=== PATIENT | female | born 1940 | race Caucasian/White ===

== ENCOUNTER → 2017-04-16 | Outpatient (CLI) | payer MEDICARE ==
[2017-04-16 12:52] LABS: HEMATOCRIT 34.5 % (36.0-47.0); HEMOGLOBIN 11.6 g/dL (12.0-15.5); HGB HCT DIFFERENCE 0.3; MEAN CORPUSCULAR HEMOGLOBIN 27.8 pg (27.0-33.4); MEAN CORPUSCULAR HGB CONC 33.6 g/dL (32.0-36.0); MEAN CORPUSCULAR VOLUME 83 fl (80-97); RED BLOOD COUNT 4.17 10^6/uL (3.72-5.28); RED CELL DISTRIBUTION WIDTH 14.7 % (11.5-14.0); WHITE BLOOD COUNT 7.5 10^3/uL (4.0-10.5)
[2017-04-16 13:06] LABS: APPEARANCE,URINE CLEAR; BILIRUBIN,URINE NEGATIVE (NEGATIVE); GLUCOSE, URINE NEGATIVE (NEGATIVE); KETONES,URINE NEGATIVE (NEGATIVE); LEUKOCYTE ESTERASE,URINE TRACE (NEGATIVE); NITRITE,URINE NEGATIVE (NEGATIVE); PROTEIN,URINE NEGATIVE (NEGATIVE); URINE SPECIFIC GRAVITY 1.018; UROBILINOGEN,URINE NEGATIVE mg/dL (<2.0)
[2017-04-16 13:07] LABS: ANION GAP 15 (5-19); BLOOD UREA NITROGEN 26 mg/dL (7-20); CALCIUM 9.5 mg/dL (8.4-10.2); CARBON DIOXIDE 17 mmol/L (22-30); CHLORIDE 111 mmol/L (98-107); GLUCOSE 106 mg/dL (75-110); POTASSIUM 4.9 mmol/L (3.6-5.0); SODIUM 142.5 mmol/L (137-145)
== END ==
LOC: OD 11:45
PROVIDERS: ATTEND Physician Assistant Medical
DX: I12.9 Hypertensive chronic kidney disease with stage 1 through stage 4 chronic kidney disease, or unspecified chronic kidney disease (principal); N18.3 Chronic kidney disease, stage 3 (moderate); E11.9 Type 2 diabetes mellitus without complications
CPT/HCPCS: 36415; 80048; 81001; 85027

== ENCOUNTER → 2017-05-22 | Outpatient (CLI) | payer MEDICARE ==
[2017-05-22 11:42] LABS: APPEARANCE,URINE SLIGHTLY-CLOUDY; BILIRUBIN,URINE NEGATIVE (NEGATIVE); GLUCOSE, URINE NEGATIVE (NEGATIVE); KETONES,URINE NEGATIVE (NEGATIVE); LEUKOCYTE ESTERASE,URINE TRACE (NEGATIVE); NITRITE,URINE NEGATIVE (NEGATIVE); PROTEIN,URINE NEGATIVE (NEGATIVE); URINE SPECIFIC GRAVITY 1.011; UROBILINOGEN,URINE NEGATIVE mg/dL (<2.0)
[2017-05-22 11:44] LABS: HEMATOCRIT 38.9 % (36.0-47.0); HEMOGLOBIN 12.5 g/dL (12.0-15.5); HGB HCT DIFFERENCE -1.4; MEAN CORPUSCULAR HEMOGLOBIN 27.3 pg (27.0-33.4); MEAN CORPUSCULAR HGB CONC 32.1 g/dL (32.0-36.0); MEAN CORPUSCULAR VOLUME 85 fl (80-97); RED BLOOD COUNT 4.57 10^6/uL (3.72-5.28); RED CELL DISTRIBUTION WIDTH 14.4 % (11.5-14.0); WHITE BLOOD COUNT 8.4 10^3/uL (4.0-10.5)
[2017-05-22 12:18] LABS: ANION GAP 12 (5-19); BLOOD UREA NITROGEN 20 mg/dL (7-20); CARBON DIOXIDE 24 mmol/L (22-30); CHLORIDE 107 mmol/L (98-107); CREATININE RESULT 1.27 mg/dL (0.52-1.25); GLUCOSE 120 mg/dL (75-110); POTASSIUM 4.6 mmol/L (3.6-5.0); SODIUM 143.3 mmol/L (137-145)
[2017-05-23 11:40] LABS: CREATININE URINE 106.7 mg/dL (Not Estab.); MICROALBUMIN URINE 60.9 ug/mL (Not Estab.)
== END ==
LOC: OD 11:08
PROVIDERS: ATTEND Physician Assistant Medical
DX: N18.3 Chronic kidney disease, stage 3 (moderate) (principal); I12.9 Hypertensive chronic kidney disease with stage 1 through stage 4 chronic kidney disease, or unspecified chronic kidney disease; E11.9 Type 2 diabetes mellitus without complications
CPT/HCPCS: 36415; 80048; 81001; 82043; 82570; 85027

== ENCOUNTER → 2017-10-24 | Outpatient (CLI) | payer MEDICAID ==
[2017-10-24 13:48] LABS: APPEARANCE,URINE SLIGHTLY-CLOUDY; BILIRUBIN,URINE NEGATIVE (NEGATIVE); COLOR,URINE YELLOW; GLUCOSE, URINE NEGATIVE (NEGATIVE); KETONES,URINE NEGATIVE (NEGATIVE); LEUKOCYTE ESTERASE,URINE TRACE (NEGATIVE); NITRITE,URINE NEGATIVE (NEGATIVE); PROTEIN,URINE 30 mg/dL (NEGATIVE); URINE SPECIFIC GRAVITY 1.023; UROBILINOGEN,URINE NEGATIVE mg/dL (<2.0)
[2017-10-24 13:54] LABS: ABSOLUTE BASOPHILS # (AUTO) 0.1 10^3/uL (0.0-0.2); ABSOLUTE EOSINOPHILS # (AUTO) 0.2 10^3/uL (0.0-0.6); ABSOLUTE LYMPHOCYTES (AUTO) 2.6 10^3/uL (0.5-4.7); ABSOLUTE MONOCYTES (AUTO) 0.7 10^3/uL (0.1-1.4); ABSOLUTE NEUT (AUTO) 5.3 10^3/uL (1.7-8.2); BASOPHILS % (AUTO) 0.9 % (0-2); HEMATOCRIT 37.3 % (36.0-47.0); HEMOGLOBIN 12.5 g/dL (12.0-15.5); LYMPHOCYTES % (AUTO) 29.3 % (13-45); MEAN CORPUSCULAR HGB CONC 33.4 g/dL (32.0-36.0); MEAN CORPUSCULAR VOLUME 81 fl (80-97); PLATELET COUNT 289 10^3/uL (150-450); RED BLOOD COUNT 4.62 10^6/uL (3.72-5.28); RED CELL DISTRIBUTION WIDTH 14.4 % (11.5-14.0); SEGMENTED NEUTROPHILS % (AUTO) 59.8 % (42-78); TOTAL CELLS COUNTED % (AUTO) 100 %; WHITE BLOOD COUNT 8.9 10^3/uL (4.0-10.5)
[2017-10-24 14:29] LABS: ALANINE AMINOTRANSFERASE 19 U/L (9-52); ALBUMIN 4.2 g/dL (3.5-5.0); ALKALINE PHOSPHATASE 109 U/L (38-126); ANION GAP 9 (5-19); ASPARTATE AMINO TRANSFERASE 20 U/L (14-36); BILIRUBIN,DIRECT 0.5 mg/dL (0.0-0.4); BILIRUBIN,TOTAL 0.5 mg/dL (0.2-1.3); BLOOD UREA NITROGEN 19 mg/dL (7-20); CALCIUM 10.2 mg/dL (8.4-10.2); CARBON DIOXIDE 25 mmol/L (22-30); CHLORIDE 109 mmol/L (98-107); GLUCOSE 70 mg/dL (75-110); POTASSIUM 4.5 mmol/L (3.6-5.0); SODIUM 143.1 mmol/L (137-145)
[2017-10-25 07:33] LABS: VITAMIN D 25-HYDROXY 25.9 ng/mL (30.0-100.0)
[2017-10-26 14:49] LABS: INSULIN 11.8 uIU/mL (2.6-24.9)
== END ==
LOC: OD 12:22
PROVIDERS: ATTEND Nurse Practitioner Family
DX: I10 Essential (primary) hypertension (principal); E78.5 Hyperlipidemia, unspecified; E11.9 Type 2 diabetes mellitus without complications; E55.9 Vitamin D deficiency, unspecified
CPT/HCPCS: 36415; 80053; 81005; 82306; 83036; 83525; 85025

== ENCOUNTER 2018-06-12 19:52 | Inpatient (IN) | payer MEDICARE, MEDICAID ==
[2018-06-12] MEDS ORDERED: NORMAL SALINE 1000 ML 1,000 ML IV ONE (20:03)
[2018-06-12 20:44] LABS: ABSOLUTE BASOPHILS # (AUTO) 0.1 10^3/uL (0.0-0.2); ABSOLUTE LYMPHOCYTES (AUTO) 1.4 10^3/uL (0.5-4.7); ABSOLUTE MONOCYTES (AUTO) 1.3 10^3/uL (0.1-1.4); ABSOLUTE NEUT (AUTO) 11.8 10^3/uL (1.7-8.2); BASOPHILS % (AUTO) 0.4 % (0-2); EOSINOPHILS % (AUTO) 0.1 % (0-6); HEMATOCRIT 35.8 % (36.0-47.0); LYMPHOCYTES % (AUTO) 9.3 % (13-45); MEAN CORPUSCULAR HGB CONC 33.4 g/dL (32.0-36.0); MEAN CORPUSCULAR VOLUME 84 fl (80-97); MONOCYTES % (AUTO) 9.2 % (3-13); PLATELET COUNT 296 10^3/uL (150-450); RED BLOOD COUNT 4.27 10^6/uL (3.72-5.28); RED CELL DISTRIBUTION WIDTH 14.3 % (11.5-14.0); TOTAL CELLS COUNTED % (AUTO) 100 %; WHITE BLOOD COUNT 14.6 10^3/uL (4.0-10.5)
[2018-06-12 20:45] LABS: VENOUS BLOOD BASE EXCESS -3.6 mmol/L; VENOUS BLOOD HCO3 19.1 mmol/L (20-32); VENOUS BLOOD PCO2 28.3 mmHg (35-63); VENOUS BLOOD PH 7.45 (7.30-7.42)
[2018-06-12] MEDS ORDERED: LEVOFLOXACIN 750 MG/D5W RTU 750 MG/150 ML RTUPB IV ONE (20:45)
--- NOTE | 2018-06-12 20:48 | RADIOLOGY REPORT (SQ) ---
EXAM DESCRIPTION: CHEST SINGLE VIEW COMPLETED DATE/TIME: 06/12/2018 8:38 pm REASON FOR STUDY: fever COMPARISON: None. EXAM PARAMETERS: NUMBER OF VIEWS: One view. TECHNIQUE: Single frontal radiographic view of the chest acquired. RADIATION DOSE: NA LIMITATIONS: None. FINDINGS: LUNGS AND PLEURA: There is a small area of opacification in the left lower lung field. Th e left heart border remains well-defined. MEDIASTINUM AND HILAR STRUCTURES: No masses. Contour normal. HEART AND VASCULAR STRUCTURES: Heart normal in size. Normal vasculature. BONES: No acute findings. HARDWARE: None in the chest. OTHER: No other significant finding. IMPRESSION: Cannot exclude limited left lower lobe pneumonia. Cannot entirely exclude a 3 cm pulmon nery mass. TECHNICAL DOCUMENTATION: JOB ID: [id number] [employer]- All Rights Reserved Reading location - IP/workstation name: [email or web address]
[2018-06-12 21:04] LABS: INTERNATIONAL RATION (INR) 1.11; PROTHROMBIN TIME 14.9 SEC (11.4-15.4)
[2018-06-12 21:06] LABS: APPEARANCE,URINE CLOUDY; BILIRUBIN,URINE NEGATIVE (NEGATIVE); COLOR,URINE YELLOW; GLUCOSE, URINE NEGATIVE (NEGATIVE); KETONES,URINE TRACE mg/dL (NEGATIVE); LEUKOCYTE ESTERASE,URINE SMALL (NEGATIVE); NITRITE,URINE NEGATIVE (NEGATIVE); PROTEIN,URINE 100 mg/dL (NEGATIVE); URINE SPECIFIC GRAVITY 1.024
[2018-06-12 21:11] LABS: ALANINE AMINOTRANSFERASE 25 U/L (9-52); ALBUMIN 4.1 g/dL (3.5-5.0); ALKALINE PHOSPHATASE 100 U/L (38-126); ANION GAP 14 (5-19); ASPARTATE AMINO TRANSFERASE 26 U/L (14-36); BILIRUBIN,DIRECT 0.4 mg/dL (0.0-0.4); BILIRUBIN,TOTAL 0.6 mg/dL (0.2-1.3); BLOOD UREA NITROGEN 22 mg/dL (7-20); CALCIUM 9.7 mg/dL (8.4-10.2); CARBON DIOXIDE 19 mmol/L (22-30); CHLORIDE 106 mmol/L (98-107); GLUCOSE 92 mg/dL (75-110); POTASSIUM 4.2 mmol/L (3.6-5.0); SODIUM 139.4 mmol/L (137-145)
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
[2018-06-12] MEDS ORDERED: GUAIFENESIN SYRP 200 MG/10 ML UDC PO PRN (22:05)
[2018-06-12] MEDS ORDERED: IPRATROPIUM/ALBUTEROL 0.5-2.5 MG/3 ML AMPUL NEB PRN (22:05)
[2018-06-12] MEDS ORDERED: NORMAL SALINE 1000 ML 1,000 ML IV SCH (22:15)
[2018-06-12] MEDS ORDERED: DIPHENHYDRAMINE HCL 50 MG CAPSULE PO ONE (23:15)
[2018-06-13] MEDS: IPRATROPIUM/ALBUTEROL 0.5-2.5 MG/3 ML AMPUL NEB SCH ×4 (00:10→23:39)
[2018-06-13] MEDS: ACETAMINOPHEN 325 MG TABLET PO PRN ×4 (02:42→23:25)
--- NOTE | 2018-06-13 04:59 | PDOC H&P ---
History of Present Illness Admission Date/PCP: 06/12/18 22:30 Patient complains of: Altered mental status and shortness of breath History of Present Illness: ERLIN MCKEON is a 77 year old female with a past medical history of hypertension and diabetes. Presents with 24 hours of fever, altered mental status, shortness of breath and a nonproductive cough. She admits to rhinorrhea , denies recent antibiotics. In the emergency room she is found to have leukocytosis and acute renal failure. She is referred to the hospitalist for admission. Past Medical History Cardiac Medical History: Reports: Hypertension Endocrine Medical History: Reports: Diabetes Mellitus Type 2 Psychiatric Medical History: Denies: Depression, Tobacco Dependency Traumatic Medical History: Reports: None Hematology: Reports: None Infectious Medical History: Reports: None Social History Information Source: Patient Lives with: Family Smoking Status: Never Smoker Frequency of Alcohol Use: None Hx Recreational Drug Use: No Drugs: None - Advance Directive Resuscitation Status: Full Code Family History Family History: Hypertension Parental Family History Reviewed: Yes Children Family History Reviewed: Yes Sibling(s) Family History Reviewed.: Yes Medication/Allergy Allergies/Adverse Reactions: No Known Allergies Allergy (Verified 06/12/18 23:28) Review of Systems Constitutional: ABSENT: chills, fever(s), headache(s), weight gain, weight loss Eyes: ABSENT: visual disturbances Ears: ABSENT: hearing changes Cardiovascular: ABSENT: chest pain, dyspnea on exertion, edema, orthropnea, palpitations Respiratory: ABSENT: cough, hemoptysis Gastrointestinal: ABSENT: abdominal pain, constipation, diarrhea, hematemesis, hematochezia, nausea, vomiting Genitourinary: ABSENT: dysuria, hematuria Musculoskeletal: ABSENT: joint swelling Integumentary: ABSENT: rash, wounds Neurological: ABSENT: abnormal gait, abnormal speech, confusion, dizziness, focal weakness, syncope Psychiatric: ABSENT: anxiety, depression, homidical ideation, suicidal ideation Endocrine: ABSENT: cold intolerance, heat intolerance, polydipsia, polyuria Hematologic/Lymphatic: ABSENT: easy bleeding, easy bruising Physical Exam Vital Signs: Temp Pulse Resp BP Pulse Ox 102.4 F H 129 H 16 115/58 L 98 06/13/18 03:27 06/13/18 03:27 06/13/18 03:27 06/13/18 03:27 06/13/18 04:04 Pulse Oximeter Continuous Start: 06/12/18 22: 05 Freq: RTQ4 Status: Active Document 06/13/18 04:04 CMI (Rec: 06/13/18 04:04 CMI [id number]) Pulse Oximetry Assessment Oxygen Saturation (92-100) 98 Oxygen Delivery Method Room Air Fraction of Inspired Oxygen (FIO2) 21 Equipment Usage Equipment in Use Continuous SpO2 Machine # 14 Intake & Output 06/11/18 06/12/18 06/13/18 11:59 11:59 11:59 Intake Total 1000 Balance 1000 Weight 60.7 kg General appearance: PRESENT: cooperative, mild distress. ABSENT: disheveled, obese Head exam: PRESENT: atraumatic, normocephalic Eye exam: PRESENT: conjunctiva pink, EOMI, PERRLA. ABSENT: scleral icterus Ear exam: PRESENT: normal external ear exam Mouth exam: PRESENT: moist, tongue midline Neck exam: ABSENT: carotid bruit, JVD, lymphadenopathy, thyromegaly Respiratory exam: PRESENT: accessory muscle use, decreased breath sounds, rhonchi, symmetrical, tachypnea Cardiovascular exam: PRESENT: RRR. ABSENT: diastolic murmur, rubs, systolic murmur Pulses: PRESENT: normal dorsalis pedis pul Vascular exam: PRESENT: normal capillary refill GI/Abdominal exam: PRESENT: normal bowel sounds, soft. ABSENT: distended, guarding, mass, organolmegaly, rebound, tenderness Rectal exam: PRESENT: deferred Extremities exam: PRESENT: full ROM. ABSENT: calf tenderness, clubbing, pedal edema Neurological exam: PRESENT: alert, altered, awake, oriented to person, oriented to situation, CN II-XII grossly intact Psychiatric exam: PRESENT: appropriate affect, normal mood. ABSENT: homicidal ideation, suicidal ideation Skin exam: PRESENT: dry, intact, warm. ABSENT: cyanosis, rash Results Impressions: Chest X-Ray 06/12/18 20:03 IMPRESSION: Cannot exclude limited left lower lobe pneumonia. Cannot entirely exclude a 3 cm pulmonary mass. Assessment & Plan - Diagnosis (1) Left lower lobe pneumonia Qualifiers: Pneumonia type: due to unspecified organism Qualified Code(s): J18.1 - Lobar pneumonia, unspecified organism Is this a current diagnosis for this admission?: Yes Plan: Pneumonia care set, follow-up CBC and blood culture (2) Encephalopathy acute Is this a current diagnosis for this admission?: Yes Plan: Secondary to #1, supportive care (3) Acute renal failure Is this a current diagnosis for this admission?: Yes Plan: Secondary to #1, IV fluid challenge, avoid nephrotoxic meds and doses follow-up chemistry (4) Sepsis Qualifiers: Sepsis type: sepsis due to unspecified organism Qualified Code(s): A41.9 - Sepsis, unspecified organism Is this a current diagnosis for this admission?: Yes Plan: Secondary to #1, IV fluid challenge, pressors as needed - Time Time Spent: 50 to 70 Minutes - Inpatient Certification Medical Necessity: Need Close Monitoring Due to Risk of Patient Decompensation
[2018-06-13 05:16] LABS: ABSOLUTE BASOPHILS # (AUTO) 0.1 10^3/uL (0.0-0.2); ABSOLUTE LYMPHOCYTES (AUTO) 1.1 10^3/uL (0.5-4.7); ABSOLUTE MONOCYTES (AUTO) 1.5 10^3/uL (0.1-1.4); ABSOLUTE NEUT (AUTO) 11.7 10^3/uL (1.7-8.2); BASOPHILS % (AUTO) 0.5 % (0-2); HEMATOCRIT 32.7 % (36.0-47.0); HEMOGLOBIN 10.8 g/dL (12.0-15.5); LYMPHOCYTES % (AUTO) 7.6 % (13-45); MEAN CORPUSCULAR HEMOGLOBIN 27.9 pg (27.0-33.4); MEAN CORPUSCULAR HGB CONC 33.1 g/dL (32.0-36.0); MEAN CORPUSCULAR VOLUME 84 fl (80-97); MONOCYTES % (AUTO) 10.8 % (3-13); PLATELET COUNT 256 10^3/uL (150-450); RED BLOOD COUNT 3.89 10^6/uL (3.72-5.28); RED CELL DISTRIBUTION WIDTH 14.5 % (11.5-14.0); SEGMENTED NEUTROPHILS % (AUTO) 81.1 % (42-78); TOTAL CELLS COUNTED % (AUTO) 100 %; WHITE BLOOD COUNT 14.4 10^3/uL (4.0-10.5)
[2018-06-13 05:36] LABS: ANION GAP 11 (5-19); BLOOD UREA NITROGEN 21 mg/dL (7-20); CALCIUM 8.9 mg/dL (8.4-10.2); CARBON DIOXIDE 18 mmol/L (22-30); CHLORIDE 111 mmol/L (98-107); GLUCOSE 84 mg/dL (75-110)
[2018-06-13] MEDS: HEPARIN SOD (PORCINE) 5,000 UNIT/ML 1 ML SYRINGE SUBCUT SCH ×3 (05:52→21:43)
[2018-06-13] MEDS: LEVOFLOXACIN 750 MG/D5W RTU 750 MG/150 ML RTUPB IV SCH (10:22)
[2018-06-13] MEDS ORDERED: DEXTROSE 40% GEL 15 GM TUBE PO PRN ×2 (14:36)
[2018-06-13] MEDS ORDERED: GLUCAGON,HUMAN RECOMB 1 MG INJ IM PRN (14:36)
[2018-06-13] MEDS ORDERED: INSULIN REG, HUMAN 100 UNIT/ML 3 ML VIAL (PYX) SUBCUT PRN (14:36)
[2018-06-13] MEDS ORDERED: DEXTROSE 50%-WATER 25 GM/50 ML DISP.SYRIN IV PRN ×2 (14:36)
--- NOTE | 2018-06-13 14:58 | PDOC PROGRESS REPORT ---
Subjective Progress Note for:: 06/13/18 Subjective:: ERLIN MCKEON is a 77 year old female with a past medical history of hypertension and diabetes. Presents with 24 hours of fever, altered mental status, shortness of breath and a nonproductive cough. She admits to rhinorrhea , denies recent antibiotics. Patient's encephalopathy resolved awake and alert this morning. Had fever of 101.3. Blood cultures were obtained again. White count remains 14,000. Patient having Reiger's earlier today Reason For Visit: ENCEPHALOPATHY ARF PNEUMONIA Physical Exam Vital Signs: Temp Pulse Resp BP Pulse Ox 99.3 F 98 16 134/61 H 96 06/13/18 11:54 06/13/18 14:00 06/13/18 11:54 06/13/18 11:54 06/13/18 12:00 General appearance: PRESENT: no acute distress, well-developed, well-nourished Eye exam: PRESENT: conjunctiva pink, EOMI, PERRLA. ABSENT: scleral icterus Neck exam: ABSENT: carotid bruit, JVD, lymphadenopathy, thyromegaly Respiratory exam: PRESENT: clear to auscultation carmela - Diminished breath sounds throughout. ABSENT: rales, rhonchi, wheezes Cardiovascular exam: PRESENT: RRR. ABSENT: diastolic murmur, rubs, systolic murmur GI/Abdominal exam: PRESENT: normal bowel sounds, soft. ABSENT: distended, guarding, mass, organolmegaly, rebound, tenderness Extremities exam: PRESENT: full ROM. ABSENT: calf tenderness, clubbing, pedal edema Neurological exam: PRESENT: alert, awake, oriented to person, oriented to place , oriented to time, oriented to situation, CN II-XII grossly intact. ABSENT: motor sensory deficit Results Impressions: Chest X-Ray 06/12/18 20:03 IMPRESSION: Cannot exclude limited left lower lobe pneumonia. Cannot entirely exclude a 3 cm pulmonary mass. Assessment & Plan - Diagnosis (1) Left lower lobe pneumonia Qualifiers: Pneumonia type: due to unspecified organism Qualified Code(s): J18.1 - Lobar pneumonia, unspecified organism Is this a current diagnosis for this admission?: Yes Plan: Continue Levaquin. CBC in a.m. 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
[2018-06-13] MEDS: DILTIAZEM HCL 30 MG TABLET PO SCH ×2 (17:01→23:22)
--- NOTE | 2018-06-13 21:02 | EKG REPORT ---
SEVERITY:- ABNORMAL ECG - SINUS TACHYCARDIA LEFT ATRIAL ABNORMALITY : Confirmed by: Carin Cunningham MD 13-Jun-2018 21:02:19
[2018-06-13] MEDS: ATORVASTATIN CALCIUM 20 MG TABLET PO SCH (21:44)
[2018-06-14 05:49] LABS: ABSOLUTE LYMPHOCYTES (AUTO) 1.5 10^3/uL (0.5-4.7); ABSOLUTE MONOCYTES (AUTO) 1.4 10^3/uL (0.1-1.4); ABSOLUTE NEUT (AUTO) 9.8 10^3/uL (1.7-8.2); BASOPHILS % (AUTO) 0.3 % (0-2); EOSINOPHILS % (AUTO) 0.1 % (0-6); HEMOGLOBIN 11.3 g/dL (12.0-15.5); LYMPHOCYTES % (AUTO) 12.1 % (13-45); MEAN CORPUSCULAR HEMOGLOBIN 27.8 pg (27.0-33.4); MEAN CORPUSCULAR HGB CONC 33.3 g/dL (32.0-36.0); MEAN CORPUSCULAR VOLUME 83 fl (80-97); MONOCYTES % (AUTO) 10.9 % (3-13); PLATELET COUNT 235 10^3/uL (150-450); RED BLOOD COUNT 4.08 10^6/uL (3.72-5.28); RED CELL DISTRIBUTION WIDTH 14.6 % (11.5-14.0); SEGMENTED NEUTROPHILS % (AUTO) 76.6 % (42-78); TOTAL CELLS COUNTED % (AUTO) 100 %; WHITE BLOOD COUNT 12.8 10^3/uL (4.0-10.5)
[2018-06-14 06:10] LABS: ANION GAP 12 (5-19); BLOOD UREA NITROGEN 14 mg/dL (7-20); CALCIUM 8.9 mg/dL (8.4-10.2); CARBON DIOXIDE 18 mmol/L (22-30); CHLORIDE 108 mmol/L (98-107); GLUCOSE 123 mg/dL (75-110); POTASSIUM 4.3 mmol/L (3.6-5.0); SODIUM 138.1 mmol/L (137-145)
[2018-06-14] MEDS: HEPARIN SOD (PORCINE) 5,000 UNIT/ML 1 ML SYRINGE SUBCUT SCH ×3 (06:48→22:37)
[2018-06-14] MEDS: DILTIAZEM HCL 30 MG TABLET PO SCH ×4 (06:49→23:36)
[2018-06-14] MEDS: IPRATROPIUM/ALBUTEROL 0.5-2.5 MG/3 ML AMPUL NEB SCH ×2 (08:25→16:06)
[2018-06-14] MEDS: LEVOFLOXACIN 750 MG/D5W RTU 750 MG/150 ML RTUPB IV SCH (09:37)
[2018-06-14] MEDS: LISINOPRIL 10 MG TABLET PO SCH (09:37)
[2018-06-14] MEDS: METOPROLOL SUCCINATE 50 MG TAB.SR.24H PO SCH (09:38)
[2018-06-14] MEDS ORDERED: DIPHENHYDRAMINE HCL 25 MG CAPSULE PO PRN (10:15)
--- NOTE | 2018-06-14 11:06 | PDOC PROGRESS REPORT ---
Subjective Progress Note for:: 06/14/18 Subjective:: ERLIN MCKEON is a 77 year old female with a past medical history of hypertension and diabetes. Presents with 24 hours of fever, altered mental status, shortness of breath and a nonproductive cough. She admits to rhinorrhea , denies recent antibiotics. Patient's encephalopathy resolved awake and alert this morning. T-max 103 yesterday today 100. Blood cultures gram-positive cocci in clusters in 1 bottle other culture negative. Clinically patient improved. Reports some itching with Levaquin on her initial dose but not on subsequent dose. No hives or urticaria detected. Reason For Visit: PNEUMONIA,ACUTE RENAL FAILURE,ACUTE ENCEPHALOPATHY Physical Exam Vital Signs: Temp Pulse Resp BP Pulse Ox 100.0 F 103 H 20 145/72 H 98 06/14/18 07:43 06/14/18 08:25 06/14/18 08:25 06/14/18 07:43 06/14/18 08:25 Pulse Oximeter Continuous Start: 06/12/18 22: 05 Freq: RTQ4 Status: Active Document 06/14/18 08:25 TPO (Rec: 06/14/18 08:35 [facility] [id number]) Pulse Oximetry Assessment Oxygen Saturation (92-100) 98 Oxygen Delivery Method Room Air Fraction of Inspired Oxygen (FIO2) 21 Equipment Usage Equipment in Use Continuous SpO2 Machine # 14 Intake & Output 06/13/18 06/14/18 06/15/18 06:59 06:59 06:59 Intake Total 536 Output Total 900 Balance -364 Weight 61.3 kg General appearance: PRESENT: no acute distress, well-developed, well-nourished Head exam: PRESENT: atraumatic, normocephalic Eye exam: PRESENT: conjunctiva pink, EOMI, PERRLA. ABSENT: scleral icterus Ear exam: PRESENT: normal external ear exam Mouth exam: PRESENT: moist, tongue midline Neck exam: ABSENT: carotid bruit, JVD, lymphadenopathy, thyromegaly Respiratory exam: PRESENT: clear to auscultation carmela, rales - Posterior. ABSENT : rhonchi, wheezes Cardiovascular exam: PRESENT: RRR. ABSENT: diastolic murmur, rubs, systolic murmur Pulses: PRESENT: normal dorsalis pedis pul Vascular exam: PRESENT: normal capillary refill GI/Abdominal exam: PRESENT: normal bowel sounds, soft. ABSENT: distended, guarding, mass, organolmegaly, rebound, tenderness Extremities exam: PRESENT: full ROM. ABSENT: calf tenderness, clubbing, pedal edema Neurological exam: PRESENT: alert, awake, oriented to person, oriented to place , oriented to time, oriented to situation, CN II-XII grossly intact. ABSENT: motor sensory deficit Psychiatric exam: PRESENT: appropriate affect, normal mood. ABSENT: homicidal ideation, suicidal ideation Skin exam: PRESENT: dry, intact, warm. ABSENT: cyanosis, rash Results Laboratory Results: 06/14/18 04:11 06/14/18 04:11 06/14/18 06/14/18 04:11 04:11 WBC 12.8 H RBC 4.08 Hgb 11.3 L Hct 34.0 L MCV 83 MCH 27.8 MCHC 33.3 RDW 14.6 H Plt Count 235 Seg Neutrophils % 76.6 Lymphocytes % 12.1 L Monocytes % 10.9 Eosinophils % 0.1 Basophils % 0.3 Absolute Neutrophils 9.8 H Absolute Lymphocytes 1.5 Absolute Monocytes 1.4 Absolute Eosinophils 0.0 Absolute Basophils 0.0 Sodium 138.1 Potassium 4.3 Chloride 108 H Carbon Dioxide 18 L Anion Gap 12 BUN 14 Creatinine 1.13 Est GFR ( Amer) 56 L Est GFR (Non-Af Amer) 47 L Glucose 123 H Calcium 8.9 Magnesium 1.5 L Impressions: Chest X-Ray 06/12/18 20:03 IMPRESSION: Cannot exclude limited left lower lobe pneumonia. Cannot entirely exclude a 3 cm pulmonary mass. Assessment & Plan - Diagnosis (1) Left lower lobe pneumonia Qualifiers: Pneumonia type: due to unspecified organism Qualified Code(s): J18.1 - Lobar pneumonia, unspecified organism Is this a current diagnosis for this admission?: Yes Plan: Continue Levaquin. CBC in a.m. follow-up on blood cultures. Patient had itching to initial dose of Levaquin but not subsequent. Was initially treated with Benadryl. We will give Levaquin today without predosing with Benadryl if patient has H will change antibiotics. White count decreasing now 12,000 clinically improving continue present antibiotics pending culture results. 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 Hemoglobin A1c 5.8 good glycemic control (4) Hypertension Qualifiers: Hypertension type: essential hypertension Qualified Code(s): I10 - Essential (primary) hypertension Is this a current diagnosis for this admission?: Yes Plan: Blood pressure had been elevated yesterday Cardizem 30 mg every 6 hours added to home regimen. Mild hypertension today still tachycardic due to pneumonia consider continuing Cardizem on discharge. (5) Encephalopathy acute Is this a current diagnosis for this admission?: Yes Plan: Resolved [place] to infection/sepsis (6) Sepsis Qualifiers: Sepsis type: sepsis due to unspecified organism Qualified Code(s): A41.9 - Sepsis, unspecified organism Is this a current diagnosis for this admission?: Yes Plan: Resolved - Time Time Spent with patient: 25-34 minutes Anticipated discharge: Home Within: within 48 hours
[2018-06-14] MEDS: MAGNESIUM OXIDE 400 MG TABLET PO SCH ×2 (11:55→18:27)
[2018-06-14] MEDS: ACETAMINOPHEN 325 MG TABLET PO PRN (16:28)
[2018-06-14] MEDS: ATORVASTATIN CALCIUM 20 MG TABLET PO SCH (22:37)
[2018-06-15] MEDS: IPRATROPIUM/ALBUTEROL 0.5-2.5 MG/3 ML AMPUL NEB SCH ×3 (01:08→15:59)
[2018-06-15] MEDS: DILTIAZEM HCL 30 MG TABLET PO SCH (05:08)
[2018-06-15] MEDS: HEPARIN SOD (PORCINE) 5,000 UNIT/ML 1 ML SYRINGE SUBCUT SCH ×3 (05:09→21:24)
[2018-06-15] MEDS: LISINOPRIL 10 MG TABLET PO SCH (09:49)
[2018-06-15] MEDS: METOPROLOL SUCCINATE 50 MG TAB.SR.24H PO SCH (09:49)
[2018-06-15] MEDS: LEVOFLOXACIN 750 MG/D5W RTU 750 MG/150 ML RTUPB IV SCH (09:50)
[2018-06-15] MEDS: MAGNESIUM OXIDE 400 MG TABLET PO SCH ×2 (09:50→17:53)
--- NOTE | 2018-06-15 10:24 | PDOC PROGRESS REPORT ---
Subjective Progress Note for:: 06/15/18 Subjective:: ERLIN MCKEON is a 77 year old female with a past medical history of hypertension and diabetes. Presents with 24 hours of fever, altered mental status, shortness of breath and a nonproductive cough. She admits to rhinorrhea , denies recent antibiotics. Patient's encephalopathy resolved awake and alert this morning. T-max 102 yesterday today 99. Blood cultures gram-positive cocci in clusters in 1 bottle other culture negative ID sensitivity pending. Clinically patient improved. Reports no further itching with Levaquin. No new complaints. Reason For Visit: PNEUMONIA,ACUTE RENAL FAILURE,ACUTE ENCEPHALOPATHY Physical Exam Vital Signs: Temp Pulse Resp BP Pulse Ox 99.0 F 95 24 H 119/61 96 06/15/18 08:29 06/15/18 08:29 06/15/18 08:29 06/15/18 08:29 06/15/18 08:29 Pulse Oximeter Continuous Start: 06/12/18 22: 05 Freq: RTQ4 Status: Active Document 06/15/18 08:20 TPO (Rec: 06/15/18 08:29 TPO [email or web address]) Pulse Oximetry Assessment Oxygen Saturation (92-100) 96 Oxygen Delivery Method Room Air Fraction of Inspired Oxygen (FIO2) 21 Equipment Usage Equipment in Use Continuous Pulse Oximeter 24 Hour Charge Charge Now Continuous SpO2 Machine # 14 Intake & Output 06/14/18 06/15/18 06/16/18 06:59 06:59 06:59 Intake Total 536 734 Output Total 900 800 Balance -364 -66 Weight 61.3 kg 60.5 kg General appearance: PRESENT: no acute distress, well-developed, well-nourished Neck exam: ABSENT: carotid bruit, JVD, lymphadenopathy, thyromegaly Respiratory exam: PRESENT: clear to auscultation carmela, rales - Left base. ABSENT : rhonchi, wheezes Cardiovascular exam: PRESENT: RRR. ABSENT: diastolic murmur, rubs, systolic murmur GI/Abdominal exam: PRESENT: normal bowel sounds, soft. ABSENT: distended, guarding, mass, organolmegaly, rebound, tenderness Extremities exam: PRESENT: full ROM. ABSENT: calf tenderness, clubbing, pedal edema Results Laboratory Results: 06/14/18 04:11 09/29/18 04:11 Impressions: Chest X-Ray 06/12/18 20:03 IMPRESSION: Cannot exclude limited left lower lobe pneumonia. Cannot entirely exclude a 3 cm pulmonary mass. Assessment & Plan - Diagnosis (1) Left lower lobe pneumonia Qualifiers: Pneumonia type: due to unspecified organism Qualified Code(s): J18.1 - Lobar pneumonia, unspecified organism Is this a current diagnosis for this admission?: Yes Plan: Continue IV Levaquin today. Repeat chest x-ray. Await culture results for duration of therapy. Anticipate discharge in 24-48 hours. CBC BMP in a.m. (2) Acute renal injury Is this a current diagnosis for this admission?: Yes Plan: Abdomen 1.13 back to baseline patient has chronic kidney disease stage III (3) Diabetes mellitus Qualifiers: Diabetes mellitus type: type 2 Diabetes mellitus intermediate manager insulin use: without shelter use Diabetes mellitus complication status: without complication Qualified Code(s): E11.9 - Type 2 diabetes mellitus without complications Is this a current diagnosis for this admission?: Yes Plan: Hold glipizide place patient on sliding scale. Hemoglobin A1c 5.8 good glycemic control (4) Hypertension Qualifiers: Hypertension type: essential hypertension Qualified Code(s): I10 - Essential (primary) hypertension Is this a current diagnosis for this admission?: Yes Plan: Blood pressure had been improved with Cardizem. Heart rate now less than 100 will transition Cardizem to 120 daily long-acting (5) Encephalopathy acute Is this a current diagnosis for this admission?: Yes (6) Sepsis Qualifiers: Sepsis type: sepsis due to unspecified organism Qualified Code(s): A41.9 - Sepsis, unspecified organism Is this a current diagnosis for this admission?: Yes - Time Time Spent with patient: 15-24 minutes Anticipated discharge: Home Within: within 24 hours
--- NOTE | 2018-06-15 10:59 | RADIOLOGY REPORT (SQ) ---
EXAM DESCRIPTION: CHEST 2 VIEWS COMPLETED DATE/TIME: 06/15/2018 10:36 am REASON FOR STUDY: Follow-up pneumonia COMPARISON: None. TECHNIQUE: Frontal and lateral radiographic views of the chest acquired. NUMBER OF VIEWS: Two view. LIMITATIONS: None. FINDINGS: LUNGS AND PLEURA: Airspace disease in the left lower lobe, as before. Lungs otherwise loo k clear. Possible underlying COPD. MEDIASTINUM AND HILAR STRUCTURES: No masses or contour abnormalities. HEART AND VASCULAR STRUCTURES: Heart normal size. No evidence for failure. BONES: No acute findings. HARDWARE: None in the chest. OTHER: No other significant finding. IMPRESSION: Persistent left lower lobe pneumonia on short interval followup. Longer term surveillan ce imaging to document clearance with treatment is recommended. TECHNICAL DOCUMENTATION: JOB ID: [id number] [employer]- All Rights Reserved Reading location - IP/workstation name: [email or web address]
[2018-06-15] MEDS: ATORVASTATIN CALCIUM 20 MG TABLET PO SCH (21:20)
[2018-06-15] MEDS ORDERED: DILTIAZEM HCL 120 MG CAP.SR.24H PO SCH (22:00)
[2018-06-16] MEDS: IPRATROPIUM/ALBUTEROL 0.5-2.5 MG/3 ML AMPUL NEB SCH ×2 (00:13→08:09)
[2018-06-16] MEDS: HEPARIN SOD (PORCINE) 5,000 UNIT/ML 1 ML SYRINGE SUBCUT SCH (05:25)
[2018-06-16 06:03] LABS: ABSOLUTE BASOPHILS # (AUTO) 0.1 10^3/uL (0.0-0.2); ABSOLUTE EOSINOPHILS # (AUTO) 0.2 10^3/uL (0.0-0.6); ABSOLUTE LYMPHOCYTES (AUTO) 1.6 10^3/uL (0.5-4.7); ABSOLUTE NEUT (AUTO) 6.8 10^3/uL (1.7-8.2); BASOPHILS % (AUTO) 0.7 % (0-2); EOSINOPHILS % (AUTO) 2.4 % (0-6); HEMATOCRIT 33.1 % (36.0-47.0); HEMOGLOBIN 11.2 g/dL (12.0-15.5); LYMPHOCYTES % (AUTO) 16.4 % (13-45); MEAN CORPUSCULAR HGB CONC 33.7 g/dL (32.0-36.0); MEAN CORPUSCULAR VOLUME 83 fl (80-97); MONOCYTES % (AUTO) 10.7 % (3-13); PLATELET COUNT 316 10^3/uL (150-450); RED BLOOD COUNT 3.99 10^6/uL (3.72-5.28); RED CELL DISTRIBUTION WIDTH 14.2 % (11.5-14.0); SEGMENTED NEUTROPHILS % (AUTO) 69.8 % (42-78); TOTAL CELLS COUNTED % (AUTO) 100 %; WHITE BLOOD COUNT 9.7 10^3/uL (4.0-10.5)
[2018-06-16 06:33] LABS: ANION GAP 14 (5-19); BLOOD UREA NITROGEN 21 mg/dL (7-20); CALCIUM 9.4 mg/dL (8.4-10.2); CARBON DIOXIDE 19 mmol/L (22-30); CHLORIDE 106 mmol/L (98-107); GLUCOSE 103 mg/dL (75-110); POTASSIUM 4.3 mmol/L (3.6-5.0); SODIUM 138.9 mmol/L (137-145)
--- NOTE | 2018-06-16 09:22 | PDOC DISCHARGE SUMMARY ---
General - Admit/Disc Date/PCP Admission Date/Primary Care Provider: 06/13/18 13:41 Discharge Date: 06/16/18 - Discharge Diagnosis (1) Left lower lobe pneumonia Is this a current diagnosis for this admission?: Yes Summary: He did with Levaquin patient to finish 5 additional days of p.o. Levaquin on discharge. (2) Acute renal injury Is this a current diagnosis for this admission?: Yes (3) Diabetes mellitus Is this a current diagnosis for this admission?: Yes (4) Hypertension Is this a current diagnosis for this admission?: Yes Summary: Cardizem CD 120 mg daily added (5) Encephalopathy acute Is this a current diagnosis for this admission?: Yes (6) Sepsis Is this a current diagnosis for this admission?: Yes - Additional Information Resuscitation Status: Full Code Discharge Diet: As Tolerated Discharge Activity: Activity As Tolerated Prescriptions: Diltiazem HCl [Cardizem Cd 120 mg Capsule] 120 mg PO QHS #30 cap.sr.24h Guaifenesin [Mucinex] 600 mg PO BID 10 Days tab.er.12h Levofloxacin [Levaquin 750 mg Tablet] 750 mg PO DAILY #5 tablet Home Medications: Atorvastatin Calcium [Lipitor 20 mg Tablet] 20 mg PO QHS 06/13/18 Glipizide [Glucotrol 5 mg Tablet] 5 mg PO DAILY 06/13/18 Lisinopril [Prinivil 10 mg Tablet] 10 mg PO DAILY 06/13/18 Metoprolol Succinate [Toprol XL 100 mg Tablet] 100 mg PO DAILY 06/13/18 Acetaminophen [Tylenol 325 mg Tablet] 650 mg PO Q4HP PRN tablet 06/16/18 Diltiazem HCl [Cardizem Cd 120 mg Capsule] 120 mg PO QHS #30 cap.sr.24h Guaifenesin [Mucinex] 600 mg PO BID 10 Days tab.er.12h 06/16/18 Guaifenesin [Robitussin Syrup 200 mg/10 ml Ud Cup] 200 mg PO QIDP PRN udc 06/16 Levofloxacin [Levaquin 750 mg Tablet] 750 mg PO DAILY #5 tablet 06/16/18 History of Present Illness Patient complains of: Shortness of breath cough fever chills History of Present Illness: ERLIN MCKEON is a 77 year old female with a past medical history of hypertension and diabetes. Presents with 24 hours of fever, altered mental status, shortness of breath and a nonproductive cough. She admits to rhinorrhea , denies recent antibiotics. In the emergency room she is found to have leukocytosis and acute renal injury. Hospital Course Hospital Course: Patient was admitted to medical floor was cultured in the emergency room 1 bottle out of 2 grew gram-positive cocci in clusters with still no ID and sensitivity at the time of discharge it was felt to be contaminant. Patient was placed on Levaquin at the time of admission her white count was 28,000 at the time of admission dropping to 9.8 at the time of discharge. She was never hypoxemic and did not require O2 supplementation. Her metabolic encephalopathy resolved in the first 24 hours. Patient continued to have fever spikes of 102 for the first 48 hours and then became afebrile. As patient was at her baseline she was transitioned to p.o. Levaquin and discharged home with instructions to follow-up with the primary care in 7-10 days. A follow-up x- ray was done due to the intermittent fevers which showed persistent infiltrate in the left lower lobe and recommended a 3-week to 4-week follow-up chest x-ray for resolution. During the course of her hospital stay patient was noted to have significant hypertension. Cardizem was added to the regimen and transition to 120 extended release daily. She is to follow-up with her primary care in regards to her blood pressure whether this medication needs to be continued will depend on her baseline after resolution. Physical Exam Vital Signs: Temp Pulse Resp BP Pulse Ox 98.2 F 77 18 149/69 H 96 06/16/18 04:12 06/16/18 08:09 06/16/18 08:09 06/16/18 04:12 06/16/18 08:09 Pulse Oximeter Continuous Start: 06/12/18 22: 05 Freq: RTQ4 Status: Active Document 06/16/18 08:09 [facility] [place] (Rec: 06/16/18 08:17 TPO [email or web address]) Pulse Oximetry Assessment Oxygen Saturation (92-100) 96 Oxygen Delivery Method Room Air Fraction of Inspired Oxygen (FIO2) 21 Equipment Usage Equipment in Use Continuous Pulse Oximeter 24 Hour Charge Charge Now Continuous SpO2 Machine # 14 Intake & Output 06/15/18 06/16/18 06/17/18 06:59 06:59 06:59 Intake Total 734 1186 Output Total 800 1650 Balance -66 -464 Weight 60.5 kg 61 kg General appearance: PRESENT: no acute distress, well-developed, well-nourished Neck exam: ABSENT: carotid bruit, JVD, lymphadenopathy, thyromegaly Respiratory exam: PRESENT: clear to auscultation carmela, rales - Left base. ABSENT : rhonchi, wheezes Cardiovascular exam: PRESENT: RRR. ABSENT: diastolic murmur, rubs, systolic murmur Pulses: PRESENT: normal dorsalis pedis pul GI/Abdominal exam: PRESENT: normal bowel sounds, soft. ABSENT: distended, guarding, mass, organolmegaly, rebound, tenderness Extremities exam: PRESENT: full ROM. ABSENT: calf tenderness, clubbing, pedal edema Results Laboratory Results: 06/16/18 04:24 06/16/18 04:24 06/16/18 06/16/18 04:24 04:24 WBC 9.7 RBC 3.99 Hgb 11.2 L Hct 33.1 L MCV 83 MCH 28.0 MCHC 33.7 RDW 14.2 H Plt Count 316 Seg Neutrophils % 69.8 Lymphocytes % 16.4 Monocytes % 10.7 Eosinophils % 2.4 Basophils % 0.7 Absolute Neutrophils 6.8 Absolute Lymphocytes 1.6 Absolute Monocytes 1.0 Absolute Eosinophils 0.2 Absolute Basophils 0.1 Sodium 138.9 Potassium 4.3 Chloride 106 Carbon Dioxide 19 L Anion Gap 14 BUN 21 H Creatinine 1.26 H Est GFR ( Amer) 50 L Est GFR (Non-Af Amer) 41 L Glucose 103 Calcium 9.4 Impressions: Chest X-Ray 06/15/18 00:00 IMPRESSION: Persistent left lower lobe pneumonia on short interval followup. Longer term surveillance imaging to document clearance with treatment is recommended. Qualifiers - * PATIENT BEING DISCHARGED WITH ANY OF THE FOLLOWING DIAGNOSIS: No Plan Time Spent: Greater than 30 Minutes
[2018-06-16 09:38] VITALS: BP 157/76
[2018-06-16] MEDS: LEVOFLOXACIN 750 MG/D5W RTU 750 MG/150 ML RTUPB IV SCH (10:00)
[2018-06-16] MEDS: METOPROLOL SUCCINATE 50 MG TAB.SR.24H PO SCH (10:00)
[2018-06-16] MEDS: MAGNESIUM OXIDE 400 MG TABLET PO SCH (10:00)
[2018-06-16] MEDS: LISINOPRIL 10 MG TABLET PO SCH (10:00)
[2018-06-17] MEDS ORDERED: LEVOFLOXACIN 750 MG TABLET PO SCH (10:00)
== END 2018-06-16 12:05 | disposition home or self-care (01) | DRG 194 ==
LOC: ER 19:52 → EH 22:30 → 4N 06-13 00:15 → OBSVTOIN 06-13 13:41
PROVIDERS: ADMIT Internal Medicine; ATTEND Internal Medicine
DX: J18.9 Pneumonia, unspecified organism (principal); N17.9 Acute kidney failure, unspecified; G93.40 Encephalopathy, unspecified; I12.9 Hypertensive chronic kidney disease with stage 1 through stage 4 chronic kidney disease, or unspecified chronic kidney disease; N18.3 Chronic kidney disease, stage 3 (moderate); E11.22 Type 2 diabetes mellitus with diabetic chronic kidney disease; E78.5 Hyperlipidemia, unspecified
CPT/HCPCS: 36415; 71045; 71046; 80048; 80053; 81001; 82803; 82962; 83036; 83605; 83735; 85025; 85610; 87040; 87077; 87086; 87088; 87186; 93005; 93010; 94640; 94762; 94799; 99285; G0378; G8978-GP; G8979-GP; J1644; J1956; J7620

== ENCOUNTER → 2019-07-15 | Outpatient (CLI) | payer MEDICARE, MEDICAID ==
[2019-07-15 08:18] LABS: ABSOLUTE BASOPHILS # (AUTO) 0.1 10^3/uL (0.0-0.2); ABSOLUTE EOSINOPHILS # (AUTO) 0.4 10^3/uL (0.0-0.6); ABSOLUTE LYMPHOCYTES (AUTO) 3.3 10^3/uL (0.5-4.7); ABSOLUTE NEUT (AUTO) 4.9 10^3/uL (1.7-8.2); EOSINOPHILS % (AUTO) 4.3 % (0-6); HEMATOCRIT 35.6 % (36.0-47.0); HEMOGLOBIN 11.7 g/dL (12.0-15.5); LYMPHOCYTES % (AUTO) 33.9 % (13-45); MEAN CORPUSCULAR HEMOGLOBIN 28.5 pg (27.0-33.4); MEAN CORPUSCULAR VOLUME 86 fl (80-97); MONOCYTES % (AUTO) 10.3 % (3-13); PLATELET COUNT 331 10^3/uL (150-450); RED BLOOD COUNT 4.12 10^6/uL (3.72-5.28); RED CELL DISTRIBUTION WIDTH 14.1 % (11.5-14.0); SEGMENTED NEUTROPHILS % (AUTO) 50.5 % (42-78); TOTAL CELLS COUNTED % (AUTO) 100 %; WHITE BLOOD COUNT 9.7 10^3/uL (4.0-10.5)
[2019-07-15 08:42] LABS: ANION GAP 12 (5-19); BLOOD UREA NITROGEN 29 mg/dL (7-20); CALCIUM 9.9 mg/dL (8.4-10.2); CARBON DIOXIDE 23 mmol/L (22-30); CHLORIDE 109 mmol/L (98-107); GLUCOSE 98 mg/dL (75-110); PHOSPHORUS 3.8 mg/dL (2.5-4.5); POTASSIUM 4.7 mmol/L (3.6-5.0)
[2019-07-15 09:18] LABS: APPEARANCE,URINE TURBID; BILIRUBIN,URINE NEGATIVE (NEGATIVE); COLOR,URINE YELLOW; GLUCOSE, URINE NEGATIVE (NEGATIVE); KETONES,URINE NEGATIVE (NEGATIVE); LEUKOCYTE ESTERASE,URINE LARGE (NEGATIVE); NITRITE,URINE POSITIVE (NEGATIVE); PROTEIN,URINE 100 mg/dL (NEGATIVE); URINE SPECIFIC GRAVITY 1.013; UROBILINOGEN,URINE NEGATIVE mg/dL (<2.0)
[2019-07-15 10:27] LABS: UR PRO/CREAT RATIO RESULT 0.5 mg/mg (0.0-0.2); URINE CREATININE 167.4 mg/dL (15-278); URINE PROTEIN 80.8 mg/dL (<12)
== END ==
LOC: OD 07:57
PROVIDERS: ATTEND Physician Assistant Medical
DX: N17.9 Acute kidney failure, unspecified (principal); I12.9 Hypertensive chronic kidney disease with stage 1 through stage 4 chronic kidney disease, or unspecified chronic kidney disease; N18.3 Chronic kidney disease, stage 3 (moderate); E11.22 Type 2 diabetes mellitus with diabetic chronic kidney disease; E87.2 Acidosis; E87.5 Hyperkalemia
CPT/HCPCS: 36415; 80048; 81001; 82570; 83970; 84100; 84156; 85025

== ENCOUNTER → 2020-02-09 | Outpatient (CLI) | payer MEDICARE, MEDICAID ==
[2020-02-09 11:54] LABS: ABSOLUTE EOSINOPHILS # (AUTO) 0.2 10^3/uL (0.0-0.6); ABSOLUTE MONOCYTES (AUTO) 0.8 10^3/uL (0.1-1.4); ABSOLUTE NEUT (AUTO) 5.1 10^3/uL (1.7-8.2); BASOPHILS % (AUTO) 0.3 % (0-2); HEMATOCRIT 35.7 % (36.0-47.0); HEMOGLOBIN 12.2 g/dL (12.0-15.5); LYMPHOCYTES % (AUTO) 24.5 % (13-45); MEAN CORPUSCULAR HEMOGLOBIN 28.5 pg (27.0-33.4); MEAN CORPUSCULAR HGB CONC 34.1 g/dL (32.0-36.0); MEAN CORPUSCULAR VOLUME 84 fl (80-97); MONOCYTES % (AUTO) 9.5 % (3-13); PLATELET COUNT 274 10^3/uL (150-450); RED BLOOD COUNT 4.27 10^6/uL (3.72-5.28); RED CELL DISTRIBUTION WIDTH 14.7 % (11.5-14.0); SEGMENTED NEUTROPHILS % (AUTO) 62.7 % (42-78); TOTAL CELLS COUNTED % (AUTO) 100 %; WHITE BLOOD COUNT 8.1 10^3/uL (4.0-10.5)
[2020-02-09 12:10] LABS: APPEARANCE,URINE SLIGHTLY-CLOUDY; BILIRUBIN,URINE NEGATIVE (NEGATIVE); COLOR,URINE YELLOW; GLUCOSE, URINE NEGATIVE (NEGATIVE); KETONES,URINE NEGATIVE (NEGATIVE); LEUKOCYTE ESTERASE,URINE LARGE (NEGATIVE); NITRITE,URINE NEGATIVE (NEGATIVE); PROTEIN,URINE NEGATIVE (NEGATIVE); URINE SPECIFIC GRAVITY 1.023; UROBILINOGEN,URINE NEGATIVE mg/dL (<2.0)
[2020-02-09 12:14] LABS: ALBUMIN 4.1 g/dL (3.5-5.0); ANION GAP 9 (5-19); BLOOD UREA NITROGEN 34 mg/dL (7-20); CALCIUM 9.6 mg/dL (8.4-10.2); CARBON DIOXIDE 23 mmol/L (22-30); CHLORIDE 108 mmol/L (98-107); GLUCOSE 83 mg/dL (75-110); POTASSIUM 4.7 mmol/L (3.6-5.0)
[2020-02-09 12:27] LABS: UR PRO/CREAT RATIO RESULT 0.1 mg/mg (0.0-0.2); URINE CREATININE 196.4 mg/dL (15-278)
== END ==
LOC: OD 11:28
PROVIDERS: ATTEND Physician Assistant Medical
DX: N39.0 Urinary tract infection, site not specified (principal); E11.22 Type 2 diabetes mellitus with diabetic chronic kidney disease; I12.9 Hypertensive chronic kidney disease with stage 1 through stage 4 chronic kidney disease, or unspecified chronic kidney disease; N18.3 Chronic kidney disease, stage 3 (moderate); N25.0 Renal osteodystrophy; D64.9 Anemia, unspecified; R80.9 Proteinuria, unspecified
CPT/HCPCS: 36415; 80069; 81001; 82570; 83970; 84156; 85025; 87086; 87088

== ENCOUNTER → 2020-10-11 | Outpatient (CLI) | payer MEDICARE, MEDICAID ==
[2020-10-11 15:42] LABS: HEMATOCRIT 38.7 % (36.0-47.0); HEMOGLOBIN 12.6 g/dL (12.0-15.5); MEAN CORPUSCULAR HEMOGLOBIN 27.6 pg (27.0-33.4); MEAN CORPUSCULAR HGB CONC 32.5 g/dL (32.0-36.0); MEAN CORPUSCULAR VOLUME 85 fl (80-97); PLATELET COUNT 315 10^3/uL (150-450); RED BLOOD COUNT 4.56 10^6/uL (3.72-5.28); RED CELL DISTRIBUTION WIDTH 14.3 % (11.5-14.0); WHITE BLOOD COUNT 9.7 10^3/uL (4.0-10.5)
[2020-10-11 16:00] LABS: ALBUMIN 4.3 g/dL (3.5-5.0); ANION GAP 9 (5-19); BLOOD UREA NITROGEN 26 mg/dL (7-20); CALCIUM 9.6 mg/dL (8.4-10.2); CARBON DIOXIDE 25 mmol/L (22-30); CHLORIDE 107 mmol/L (98-107); GLUCOSE 96 mg/dL (75-110); PHOSPHORUS 4.5 mg/dL (2.5-4.5)
[2020-10-11 16:08] LABS: APPEARANCE,URINE CLOUDY; BILIRUBIN,URINE NEGATIVE (NEGATIVE); COLOR,URINE YELLOW; GLUCOSE, URINE NEGATIVE (NEGATIVE); KETONES,URINE NEGATIVE (NEGATIVE); LEUKOCYTE ESTERASE,URINE LARGE (NEGATIVE); NITRITE,URINE NEGATIVE (NEGATIVE); PROTEIN,URINE 100 mg/dL (NEGATIVE); URINE SPECIFIC GRAVITY 1.019; UROBILINOGEN,URINE NEGATIVE mg/dL (<2.0)
== END ==
LOC: OD 15:01
PROVIDERS: ATTEND Physician Assistant Medical
DX: N18.30 Chronic kidney disease, stage 3 unspecified (principal); N25.0 Renal osteodystrophy; D64.9 Anemia, unspecified
CPT/HCPCS: 36415; 80069; 81001; 83970; 85027